=== PATIENT | male | born 1960 | race Caucasian/White ===

== ENCOUNTER 2017-01-20 20:22 | Emergency (ER) | payer MEDICAID ==
[~2017-01-20] VITALS: Ht 170.2 cm; Wt 65.5 kg
[2017-01-20 20:45] VITALS: BP 165/94
== END 2017-01-20 22:09 | disposition left against medical advice (07) ==
LOC: ED 22:00
DX: Z53.21 Procedure and treatment not carried out due to patient leaving prior to being seen by health care provider (principal)